=== PATIENT | female | born 1975 | race Caucasian/White ===

== ENCOUNTER → 2019-03-19 | Outpatient (CLI) | payer BC ==
[2019-03-20 07:07] LABS: PROGESTERONE 004317 25.8 ng/mL (.)
== END | disposition home or self-care (01) ==
LOC: LAB 08:11
DX: E28.9 Ovarian dysfunction, unspecified (principal)

== ENCOUNTER → 2019-03-28 | Outpatient (CLI) | payer BC ==
[2019-03-29 09:06] LABS: PROGESTERONE 004317 28.6 ng/mL (.)
== END ==
LOC: LAB 09:06
PROVIDERS: Obstetrics & Gynecology Reproductive Endocrinology
DX: E28.9 Ovarian dysfunction, unspecified (principal)

== ENCOUNTER → 2019-04-27 | Outpatient (CLI) | payer BC ==
[2019-04-28 06:05] LABS: PROGESTERONE 17.3 ng/mL (.)
== END | disposition home or self-care (01) ==
LOC: LAB 07:57
PROVIDERS: Obstetrics & Gynecology Reproductive Endocrinology
DX: Z31.89 Encounter for other procreative management (principal)